=== PATIENT | female | born 1960 | race Caucasian/White ===

== ENCOUNTER 2025-01-17 08:12 | Day surgery (SDC) | payer OTHER, SELFPAY ==
--- OUTSIDE RECORDS SUMMARY | 2024-11-30 11:54 | XMS_ITS | Clinical Summary ---
Author Organization [facility] Facility Address [address] [place] [address] Care Team Providers Care Associate Creative Director Name Role Phone Mellissa Nelson MD Primary Care Provider + Allergies Active Allergy Reactions Criticality Noted Date Comments Bisphosphonates Other (see comments) 11/21/2022 Medications Forteo 600 MCG/2.4ML solution pen-injector 11/13/2022 Active gabapentin (NEURONTIN) 300 MG capsule Take 1 capsule by mouth 04/24/2022 Active dorzolamide-elissa olol (COSOPT) 22.3-6.8 MG/ML ophthalmic solution INSTILL 1 DROP IN BOTH EYES TWICE DAILY 10/09/2022 Active aspirin (ST MATTHEW) 81 MG EC tablet Take 81 mg by mouth 1 (one) time each day Active spironolactone (ALDACTONE) 25 MG tablet Take 1 tablet (25 mg total) by mouth 1 (one) time each day 30 tablet 5 12/04/2022 Active metoprolol tartrate 25 MG tablet Take 1 tablet (25 mg total) by mouth in the morning and 1 tablet (25 mg total) in the evening. 60 tablet 12/04/2022 Active metFORMIN (GLUCOPHAGE) 1000 MG tablet Take 1 tablet (1,000 mg total) by mouth in the morning and 1 tablet (1,000 mg total) in the evening. Take with meals. 60 tablet 12/04/2022 Active lisinopril 2.5 MG tablet Take 1 tablet (2.5 mg total) by mouth 1 (one) time each day 30 tablet 5 12/04/2022 Active simvastatin (ZOCOR) 10 MG tablet TAKE 1 TABLET BY MOUTH EVERY DAY 30 tablet 5 08/22/2023 Active torsemide (DEMADEX) 20 MG tablet TAKE 1 TABLET(20 MG) BY MOUTH EVERY DAY 90 tablet 3 07/30/2024 Active Active Problems Problem Noted Date Diagnosed Date Chronic osteomyelitis of jaw 11/21/2022 Diabetes mellitus 11/21/2022 Diastolic heart failure 11/21/2022 Dissecting aneurysm of artery 11/21/2022 Overview (11/21/2022): Followed yearly at [facility] Glaucoma 11/21/2022 Hyperlipidemia 11/21/2022 Spondylolisthesis 11/21/2022 Overview (11/21/2022): per chart review- BMD 02/03/2006 AP lumbar spine- - 3. 8, Total L Proximal Femur - 2.7, Femoral neck -4.0/ Osteoporosis results. will scan this result to chart. Ct notes fusion from resolved discitis Severe obesity 11/21/2022 Obstructive sleep apnea syndrome 12/25/2009 Gout 08/05/2007 Hypertension 08/05/2007 Immunizations Name Administration Dates Next Due H1N1 Inj 08/14/2009 Hep A / Hep B 05/24/2020,04/20/2020 Influenza LAIV (Nasal) 08/14/2009 Influenza, Unspecified 07/18/2020,2018,08/18/2018,09/08/2017,07/07,07/24/2015,07/29/2012,08/15/2011,07/29/20 07 MMR 06/18/2022 Pfizer SARS-COV-2 04/11/2022,03/08/2021,02/16/20 21 Pneumococcal Conjugate 06/18/2022 Pneumococcal Polysaccharide 03/15/2013, 7 Td, Unspecified 05/08/2007 Tdap 05/30/2014 Family History Medical History Relation Comments Heart disease Father Hypertension Father Kidney disease Father Stroke Father Diabetes Sister Relation Status Comments Father Sister Social History Tobacco Use Types Packs/Day Years Used Date Smoking Tobacco: Never Smokeless Tobacco: Never Tobacco Cessation:Counseling Given: Not Answered Alcohol Use Standard Drinks/Week Comments Never 0 (1 standard drink = 0.6 oz pur e alcohol) Comments Unknown Sex and Gender Information Value Date Recorded Sex Assigned at Not on file Legal Sex Female 10:12 AM EST Gender Identity Not on file Sexual Orientation Not on file Last Filed Vital Signs Vital Sign Reading Time Taken Comments Blood Pressure 88/62 12/04/2022 1:14 PM EST Pulse 102 12/04/2022 1:14 PM EST Temperature - - Respiratory Rate - - Oxygen Saturation - - Inhaled Oxygen Concentration - - Weight 74.4 kg (164 lb) 12/04/2022 1:14 PM EST Height - - Body Mass Index - - Plan of Treatment Health Maintenance Due Date Last Done Comments Breast Cancer Screening 1962 Colorectal Cancer Screening: Annual FOBT 2011 Colorectal Cancer Screening: Colonoscopy 2011 Colorectal Cancer Screening: Sigmoidoscopy 2011 Diabetes: Hemoglobin A1C 09/20/2022 Diabetes: Ophthalmology Exam 09/20/2022 Diabetes: Pedal Pulse Checked 09/20/2022 Diabetes: Sensory Foot Exam 09/20/2022 Diabetes: Visual Foot Exam 09/20/2022 Pneumococcal Vaccine: Pediat rics (0 to 5 Years) and At-Risk Patients (6 to 64 Years) (3 of 3 - PCV) 06/18/2023 06/18/2022, 03/15/2013, 05/08/2007 Influenza Vaccine (#1) 2024 , 07/13/2019, 08/18/2018, Additional history exists Hepatitis B Vaccine Completed 08/06/2022, 05/24/2020, 04/20/2020 Insurance [facility] [place] [address] [address] [place] [address] MEDICAID Care Teams Associate Creative Director Relationship Specialty Start Date End Date Mellissa Nelson MD [address] PCP - General Internal Medicine 12/04/22
--- OUTSIDE RECORDS SUMMARY | 2024-11-30 11:55 | XMS_ITS | Clinical Summary ---
Author Organization [facility] ity Address [address] [place] [address] Care Team Providers Care Adult Education Manager Name Role Phone Unavailable Primary Care Provider Unavailabl e Social History Tobacco Use Types Packs/Day Years Used Date Smoking Tobacco: Never Assessed Comments Unknown Sex and Gender Information Value Date Recorded Sex Assigned at Not on file Legal Sex Female 6:52 PM EST Gender Identity Not on file Sexual Orientation Not on file Plan of Treatment Health Maintenance Due Date Last Done Comments Breast Cancer Screening 1962 DTaP,Tdap,and Td Vaccines (1 - Tdap) 1981 Cervical Cancer Screening: P ap Smear 1983 Pneumococcal Vaccine: 50+ Ye ars (1 of 1 - PCV) 02/12/2012 Zoster Vaccines (1 of 2) 02/12/2012 COVID-19 Vaccine ( - 2023-2 5 season) 2024 Influenza Vaccine (#1) 2024 RSV Immunization Patients 60 + Years Old (1 - 1-dose 75+ series) 2037 HIB Vaccines Aged Out No longer eligi ble based on patient's age to complete this topic HPV Vaccines Aged Out No longer eligi ble based on patient's age to complete this topic Hepatitis A Vaccines Aged Out No long er eligible based on patient's age to complete this topic Hepatitis B Vaccines Aged Out No long er eligible based on patient's age to complete this topic IPV Vaccines Aged Out No longer eligi ble based on patient's age to complete this topic MMR Vaccines Aged Out No longer eligi ble based on patient's age to complete this topic Meningococcal ACWY Vaccine Aged Out N o longer eligible based on patient's age to complete this topic Meningococcal B Vacine Aged Out No lo nger eligible based on patient's age to complete this topic Pneumococcal Vaccine: Pediat rics (0 to 5 Years) and At-Risk Patients (6 to 64 Years) Aged Out No longer eligible b ased on patient's age to complete this topic RSV Immunization Patients Un katey 20 months Aged Out No longer eligible b ased on patient's age to complete this topic Varicella Vaccines Aged Out No longer eligible based on patient's age to complete this topic
--- OUTSIDE RECORDS SUMMARY | 2024-11-30 11:55 | XMS_ITS | Continuity of Care Document ---
Author Organization [facility] Address [address] [address] Phone Care Team Providers Care Data Communications Technician Name Role Phone Kee Macario DO Unavailable Unavailable Advance Directives Directive Yes / No Effective Date File Name No Information Encounters Encounter Description Practice Location Reason(s) For Visit Diagnoses Date Provider [facility], [address], [id number], [place] tel:[phone] [address] [place] [address] No Information 2022 Renaldo Sweet. [address] [place] [address], [id number], [place]. tel:[phone] Family History Family Member Type Diagnosis Age At Onset No Information Payers Payer name Insurance type Covered libertarian ID Authoriza tion(s) No Information Social History Type Description Quantity Date Captured Comments Sex Female Smoking Status No Information Chief Complaint And Reason For Visit No Information History Of Present Illness Encounter Date Complaint History Of Prese nt Illness No Information Instructions Date Instruction Additional Infor mation No Information Assessments Type Assessment Date No Information
[2025-01-13 14:24] VITALS: BMI 34.0
--- NOTE | 2025-01-17 08:37 | HO.ANESPROP2 ---
HPI - Anesthesia Eval Consult details Narrative: cataract left PMFSH Past Medical History Medical History (HFpEF) heart failure with preserved ejection fraction Cataracts, bilateral Type 2 diabetes mellitus Pulmonary hypertension Osteoporosis Osteomyelitis AUTUMN (obstructive sleep apnea) Leg edema HLD (hyperlipidemia) HTN (hypertension) Gout Glaucoma Dissection of other artery Diastolic heart failure Hx of arterial dissection Anterolisthesis Family History Family history of problems with anesthesia: No Surgical History Surgical History (Updated 01/12/25 @ 11:05 by Anny Jones RN) History of excision of lesion History of hip surgery History of bilateral knee replacement History of open reduction and internal fixation (ORIF) procedure (06/2014) Hx of biopsy History of Problems with Anesthesia: No Social History Social History Are you a primary special needs caregiver to a significant other at home: No Do you presently have visiting nurse or other home services: Yes (daughter Opal PÉREZ) Comment: can stand with assist to pivot Patient Tobacco Use Status: Never used Tobacco Use of substances other than those prescribed or required for medical reasons: No Advance Directives: No Advance Directives Information Provided: Yes Advance Directives on File: No Poor oral hygiene: No Meds Allergies Allergy/AdvReac Type Severity Reaction Status Date / Time Bisphosphonates Allergy osteonecrosis Verified 01/12/25 10:55 of jaw Home Medications ?Medication ?Instructions ?Recorded ?Confirmed ?Last Taken ?Type allopurinol 100 mg tablet 200 mg PO DAILY 01/12/25 01/13/25 Unknown History budesonide-formoterol HFA 160 1 puff inhalation QID PRN 01/12/25 01/13/25 Unknown History mcg-4.5 mcg/actuation aerosol Shortness Of Breath Or Wheezing inhaler (Symbicort) calcium 600 mg (as tab PO 01/12/25 Unknown History carbonate)-vitamin D3 20 mcg (800 unit) tablet cyanocobalamin (vitamin B-12) 100 100 mcg PO DAILY 01/12/25 01/13/25 Unknown History mcg tablet (Vitamin B-12) dorzolamide 22.3 mg-timolol 6.8 1 drp ophthalmic (eye) BID 01/12/25 01/13/25 Unknown History mg/mL eye drops folic acid 1 mg tablet 1 mg PO DAILY 01/12/25 01/13/25 Unknown History gabapentin 300 mg capsule 300 mg PO BID 01/12/25 01/13/25 Unknown History latanoprost 0.005 % eye drops drp ophthalmic (eye) 01/12/25 Unknown History lisinopril 2.5 mg tablet 2.5 mg PO DAILY 01/12/25 01/13/25 Unknown History loratadine 10 mg tablet 10 mg PO DAILY 01/12/25 01/13/25 Unknown History metformin 500 mg tablet 500 mg PO BID 01/12/25 01/13/25 Unknown History simvastatin 10 mg tablet 10 mg PO BEDTIME 01/12/25 01/13/25 Unknown History spironolactone 25 mg tablet 25 mg PO DAILY 01/12/25 01/13/25 Unknown History torsemide 20 mg tablet 20 mg PO DAILY 01/12/25 01/13/25 Unknown History Exam Height,Weight and Vital Signs: Height 4 ft 9 in Weight 71.214 kg Airway Mallampati Class: III TM Dist: <=3cm Neck ROM: Limited Heart: rrr Lungs: ta Assessment and Plan Assessment Anesthesia Assessment: Anesthesia Plan Discussed and Chart Reviewed Final Anesthetic Review Family History of Problems with Anesthesia: No History of Problems with Anesthesia: No NPO: Yes ASA Class: III Final Preanesthetic Review: No Changes in Pt Med Stat, Meds/Allgs Chart Reviewed, Consent Obtained/Reviewed and Anes Risks/Benef Reviewed Patient Risk: Intermediate Procedure Risk: Low Anesthetic Plan Anesthetic Plan: MAC: Disposition: Standard PACU
[2025-01-17 08:38] VITALS: BP 101/62; PULSE 61; RESP 16; TEMP 36.1; O2SAT 96
[2025-01-17] MEDS: Tetracaine HCl/PF 0.5% Oph Sol 4 ML DROPS 1 DROP EYE-LEFT (08:44)
[2025-01-17] MEDS: Tropicamide 1 % Ophth Sol 3 ML BTL 1 DROP EYE-LEFT ×3 (08:45→08:59)
[2025-01-17] MEDS: Cyclopentolate 1 % Ophth Sol 2 ML DRPBTL 1 DROP EYE-LEFT ×3 (08:45→08:57)
[2025-01-17] MEDS: Ketorolac Tromethamine 0.5% Op 5 ML DROPS 1 DROP EYE-LEFT ×3 (08:46→09:00)
[2025-01-17] MEDS: Phenylephrine HCL 2.5% Oph SoL 2 ML BOTTLE 1 DROP EYE-LEFT ×3 (08:48→09:01)
[2025-01-17 09:00] LABS: Glucose, Whole Blood 71 mg/dL (60-115)
[2025-01-17] MEDS: Lactated Ringers 500 ML 50 ML IV (09:00)
--- NOTE | 2025-01-17 09:18 | MHC.SHP ---
Pre-Procedural Eval Section A - 24 Hr Update-Section A only Date of Service: 01/17/25 The patient is an INPATIENT: No Changes since office visit: No Cold of Flu in the past 2 weeks, No New Medical Problems, No Changes in Medication and No Patient answered all questions The patient has been examined within 24 hours of the surgical procedure. The History & Physical has been completed within 30 days and I have reviewed it.: Yes Section B - Complete if H&P > 30 days Chief Complaint: Age-related nuclear cataract, left eye Allergies: Allergies Allergy/AdvReac Type Severity Reaction Status Date / Time Bisphosphonates Allergy osteonecrosis Verified 01/12/25 10:55 of jaw Plan Diagnosis/Plan: Unchanged I have reviewed the history and physical and performed a pertinent physical examination on my patient. No changes have occurred unless specified. Time Spent With Patient Time: Total time managing care of this patient today ____ minutes.
--- NOTE | 2025-01-17 09:18 | HO.PNOPHT ---
Ophthalmology Procedure Procedure Date of Service: 01/17/25 Ophthalmology Viscoelastic: Dolly Adamson Dual Pack Pro Ophthalmology Lenses: AC21D3/AC21B (23) Procedure Notes: PREOPERATIVE DIAGNOSIS: Decreased visual acuity left eye secondary to cataract POSTOPERATIVE DIAGNOSIS: Same PROCEDURE: Left cataract extraction with intraocular lens insertion SURGEON: Lv Kaiser M.D. ANESTHESIA: Topical/MAC ESTIMATED BLOOD LOSS: None COMPLICATIONS: None After obtaining informed consent, the patient was brought to the operation room suite and placed in the supine position. After adequate sedation per anesthesia, topical drops of Tetracaine were given to the left eye. The eye was then prepped and draped in the usual sterile fashion. The operating room microscope was then positioned over the operative eye and a lid speculum placed. A paracentesis was created. Viscoelastic was then instilled into the anterior chamber. A three plane incision was then created temporally, utilizing a 2.85 mm keratome. Capsulotomy forceps were then utilized to create a circular tear capsulotomy. Hydrodissection and hydrodelineation were carried out until adequate mobilization of the nucleus occurred. Phacoemulsification was then utilized to remove the dense central nucleus followed by removal of the cortical material utilizing the automated aspiration irrigation unit. Viscoat elastic was instilled into the posterior capsular bag followed by placement of a posterior chamber intraocular lens without difficulty. The residual Viscoat elastic was then removed utilizing the automated IA machine. The wound was check and found to be watertight. The patient tolerated the procedure well and the lid speculum was removed. Intracameral injection of Vigamox 0.1 mL followed by a subtenon injection of Kenalog-40 0.2 mL were administered. The patient will be seen in the a.m.
[2025-01-17 09:46] VITALS: BP 117/98; PULSE 76; RESP 16; TEMP 36.1; O2SAT 100
[2025-01-17 10:00] VITALS: BP 100/67; PULSE 77; RESP 16; TEMP 36.1; O2SAT 100
[2025-01-17 10:15] VITALS: BP 115/77; PULSE 79; RESP 16; TEMP 37.2; O2SAT 100
== END 2025-01-17 10:19 | disposition home or self-care (01) ==
PROVIDERS: PCP Internal Medicine; Visit Provider Ophthalmology
PROC: (CPT 66985; principal; 2025-01-17 10:00)
DX: H25.12 Age-related nuclear cataract, left eye (principal); H52.4 Presbyopia; H18.413 Arcus senilis, bilateral; H11.153 Pinguecula, bilateral; E11.9 Type 2 diabetes mellitus without complications; I10 Essential (primary) hypertension; E78.00 Pure hypercholesterolemia, unspecified; J44.9 Chronic obstructive pulmonary disease, unspecified; G47.33 Obstructive sleep apnea (adult) (pediatric); M81.0 Age-related osteoporosis without current pathological fracture; Z79.84 Long term (current) use of oral hypoglycemic drugs; Z79.899 Other long term (current) drug therapy
CPT/HCPCS: 66984; 82947; J2250; J3301; V2630

== ENCOUNTER 2025-01-31 09:01 | Day surgery (SDC) | payer OTHER, SELFPAY ==
--- OUTSIDE RECORDS SUMMARY | 2024-12-02 13:34 | XMS_ITS | Continuity of Care Document ---
Author Organization [facility] Address [address] [address] Phone Care Team Providers Care Dianeticist Name Role Phone Kee Macario DO Unavailable Unavailable Advance Directives Directive Yes / No Effective Date File Name No Information Encounters Encounter Description Practice Location Reason(s) For Visit Diagnoses Date Provider [facility], [address], [id number], [place] tel:[phone] [address] [place] [address] No Information 2022 Renaldo Sweet. [address] [place] [address], [id number], [place]. tel:[phone] Family History Family Member Type Diagnosis Age At Onset No Information Payers Payer name Insurance type Covered alliance party ID Authoriza tion(s) No Information Social History Type Description Quantity Date Captured Comments Sex Female Smoking Status No Information Chief Complaint And Reason For Visit No Information History Of Present Illness Encounter Date Complaint History Of Prese nt Illness No Information Instructions Date Instruction Additional Infor mation No Information Assessments Type Assessment Date No Information
--- OUTSIDE RECORDS SUMMARY | 2024-12-02 13:34 | XMS_ITS | Clinical Summary ---
Author Organization [facility] Facility Address [address] [place] [address] Care Team Providers Care Shot Tube Machine Tender Name Role Phone Mellissa Nelson MD Primary [...] artery 11/21/2022 Overview (11/21/2022): Followed yearly at [facility] Glaucoma 11/21/2022 Hyperlipidemia 11/21/2022 Spondylolisthesis 11/21/2022 [...] 08/06/2022, 05/24/2020, 04/20/2020 Insurance [facility] [place] [address] [place] [address] MEDICAID Care Teams Shot Tube Machine Tender Relationship Specialty Start Date End Date Mellissa Nelson MD [address] PCP - General Internal Medicine 12/04/22
--- OUTSIDE RECORDS SUMMARY | 2024-12-02 13:34 | XMS_ITS | Clinical Summary ---
Author Organization [facility] ity Address [address] [place] [address] Care Team Providers Care Hitting Coach Name Role Phone Unavailable Primary Care Provider [...]
[2025-01-13 14:40] VITALS: BMI 34.0
--- NOTE | 2025-01-27 14:36 | P.CONAN_ITS ---
Documented by User: Jacqueline Wang NP 01/27/25 14:37 HPI - Anesthesia Eval Consult details Narrative: 64yo F for Right Cataract Extraction IOL Insertion Left eye 01/17/25: Midaz 1 PMFSH Past Medical History Medical History (HFpEF) heart failure with preserved ejection fraction Cataracts, bilateral Type 2 diabetes mellitus Pulmonary hypertension Osteoporosis Osteomyelitis AUTUMN (obstructive sleep apnea) Leg edema HLD (hyperlipidemia) HTN (hypertension) Gout Glaucoma Dissection of other artery Diastolic heart failure Hx of arterial dissection Anterolisthesis Family History Family history of problems with anesthesia: No Surgical History Surgical History (Updated 01/18/25 @ 11:49 by Anny Jones RN) History of left cataract extraction (01/17/25) History of excision of lesion History of hip surgery History of bilateral knee replacement History of open reduction and internal fixation (ORIF) procedure (06/2014) Hx of biopsy History of Problems with Anesthesia: No Social History Social History Are you a primary dog daycare provider to a significant other at home: No Do you presently have visiting nurse or other home services: Yes (daughter Opal EDUCATION RESEARCH ANALYST) Comment: can stand with assist to pivot Patient Tobacco Use Status: Never used Tobacco Use of substances other than those prescribed or required for medical reasons: No Are you DNR?: No Advance Directives: No Advance Directives Information Provided: Yes Advance Directives on File: No Poor oral hygiene: No Meds Allergies Allergy/AdvReac Type Severity Reaction Status Date / Time Bisphosphonates Allergy osteonecrosis Verified 01/12/25 10:55 of jaw Home Medications ?Medication ?Instructions ?Recorded ?Confirmed ?Last Taken ?Type allopurinol 100 mg tablet 200 mg PO DAILY 01/12/25 01/13/25 01/31/25 History budesonide-formoterol HFA 160 1 puff inhalation QID PRN 01/12/25 01/13/25 01/31/25 History mcg-4.5 mcg/actuation aerosol Shortness Of Breath Or Wheezing inhaler (Symbicort) calcium 600 mg (as tab PO 01/12/25 01/17/25 History carbonate)-vitamin D3 20 mcg (800 unit) tablet cyanocobalamin (vitamin B-12) 100 100 mcg PO DAILY 01/12/25 01/13/25 01/17/25 History mcg tablet (Vitamin B-12) dorzolamide 22.3 mg-timolol 6.8 1 drp ophthalmic (eye) BID 01/12/25 01/13/25 Unknown History mg/mL eye drops folic acid 1 mg tablet 1 mg PO DAILY 01/12/25 01/13/25 01/17/25 History gabapentin 300 mg capsule 300 mg PO BID 01/12/25 01/13/25 01/31/25 History latanoprost 0.005 % eye drops drp ophthalmic (eye) 01/12/25 Unknown History lisinopril 2.5 mg tablet 2.5 mg PO DAILY 01/12/25 01/13/25 01/17/25 History loratadine 10 mg tablet 10 mg PO DAILY 01/12/25 01/13/25 01/31/25 History metformin 500 mg tablet 500 mg PO BID 01/12/25 01/13/25 Unknown History simvastatin 10 mg tablet 10 mg PO BEDTIME 01/12/25 01/13/25 01/17/25 History spironolactone 25 mg tablet 25 mg PO DAILY 01/12/25 01/13/25 01/17/25 History torsemide 20 mg tablet 20 mg PO DAILY 01/12/25 01/13/25 Unknown History Exam Height,Weight and Vital Signs: Height 4 ft 9 in Weight 71.214 kg Assessment and Plan Assessment Anesthesia Assessment: Chart Reviewed Final Anesthetic Review Family History of Problems with Anesthesia: No History of Problems with Anesthesia: No Documented by User: Tawanna Fleming MD 01/31/25 10:09 [facility] Past Medical History Medical History (HFpEF) heart failure with preserved ejection fraction Cataracts, bilateral Type 2 diabetes mellitus Pulmonary hypertension Osteoporosis Osteomyelitis AUTUMN (obstructive sleep apnea) Leg edema HLD (hyperlipidemia) HTN (hypertension) Gout Glaucoma Dissection of other artery Diastolic heart failure Hx of arterial dissection Anterolisthesis Surgical History Surgical History (Updated 01/18/25 @ 11:49 by Anny Jones RN) History of left cataract extraction (01/17/25) History of excision of lesion History of hip surgery History of bilateral knee replacement History of open reduction and internal fixation (ORIF) procedure (06/2014) Hx of biopsy Social History Social History Are you a primary dog daycare provider to a significant other at home: No Do you presently have visiting nurse or other home services: Yes (daughter Opal EDUCATION RESEARCH ANALYST) Comment: can stand with assist to pivot Patient Tobacco Use Status: Never used Tobacco Use of substances other than those prescribed or required for medical reasons: No Are you DNR?: No Advance Directives: No Advance Directives Information Provided: Yes Advance Directives on File: No Poor oral hygiene: No Meds Allergies Allergy/AdvReac Type Severity Reaction Status Date / Time Bisphosphonates Allergy osteonecrosis Verified 01/12/25 10:55 of jaw Home Medications ?Medication ?Instructions ?Recorded ?Confirmed ?Last Taken ?Type allopurinol 100 mg tablet 200 mg PO DAILY 01/12/25 01/13/25 01/31/25 History budesonide-formoterol HFA 160 1 puff inhalation QID PRN 01/12/25 01/13/25 01/31/25 History mcg-4.5 mcg/actuation aerosol Shortness Of Breath Or Wheezing inhaler (Symbicort) calcium 600 mg (as tab PO 01/12/25 01/17/25 History carbonate)-vitamin D3 20 mcg (800 unit) tablet cyanocobalamin (vitamin B-12) 100 100 mcg PO DAILY 01/12/25 01/13/25 01/17/25 History mcg tablet (Vitamin B-12) dorzolamide 22.3 mg-timolol 6.8 1 drp ophthalmic (eye) BID 01/12/25 01/13/25 Unknown History mg/mL eye drops folic acid 1 mg tablet 1 mg PO DAILY 01/12/25 01/13/25 01/17/25 History gabapentin 300 mg capsule 300 mg PO BID 01/12/25 01/13/25 01/31/25 History latanoprost 0.005 % eye drops drp ophthalmic (eye) 01/12/25 Unknown History lisinopril 2.5 mg tablet 2.5 mg PO DAILY 04/06/3001/13/25 01/17/25 History loratadine 10 mg tablet 10 mg PO DAILY 01/12/25 01/13/25 01/31/25 History metformin 500 mg tablet 500 mg PO BID 01/12/25 01/13/25 Unknown History simvastatin 10 mg tablet 10 mg PO BEDTIME 01/12/25 01/13/25 01/17/25 History spironolactone 25 mg tablet 25 mg PO DAILY 01/12/25 01/13/25 01/17/25 History torsemide 20 mg tablet 20 mg PO DAILY 01/12/25 01/13/25 Unknown History Exam Airway Mallampati Class: II TM Dist: >3cm Neck ROM: Full Heart: rrr Lungs: cta Assessment and Plan Assessment Anesthesia Assessment: Anesthesia Plan Discussed Final Anesthetic Review NPO: Yes ASA Class: III Final Preanesthetic Review: No Changes in Pt Med Stat, Meds/Allgs Chart Reviewed and Consent Obtained/Reviewed Patient Risk: Intermediate Procedure Risk: Low Anesthetic Plan Anesthetic Plan: MAC: Disposition: Standard PACU
[2025-01-31 09:46] VITALS: BP 102/68; PULSE 98; RESP 16; TEMP 36.1; O2SAT 95
[2025-01-31] MEDS: Tetracaine HCl/PF 0.5% Oph Sol 4 ML DROPS 1 DROP EYE-RIGHT (10:05)
[2025-01-31 10:06] LABS: Glucose, Whole Blood 88 mg/dL (60-115)
[2025-01-31] MEDS: Cyclopentolate 1 % Ophth Sol 2 ML DRPBTL 1 DROP EYE-RIGHT ×3 (10:07→10:13)
[2025-01-31] MEDS: Tropicamide 1 % Ophth Sol 3 ML BTL 1 DROP EYE-RIGHT ×3 (10:08→10:13)
[2025-01-31] MEDS: Ketorolac Tromethamine 0.5% Op 5 ML DROPS 1 DROP EYE-RIGHT ×3 (10:08→10:14)
[2025-01-31] MEDS: Phenylephrine HCL 2.5% Oph SoL 2 ML BOTTLE 1 DROP EYE-RIGHT ×3 (10:09→10:14)
[2025-01-31] MEDS: Lactated Ringers 500 ML 50 ML IV (10:15)
--- NOTE | 2025-01-31 10:51 | MHC.SHP ---
Pre-Procedural Eval Section A - 24 Hr Update-Section A only Date of Service: 01/31/25 The patient is an INPATIENT: No Changes since office visit: No Cold of Flu in the past 2 weeks, No New Medical Problems, No Changes in Medication and No Patient answered all questions The patient has been examined within 24 hours of the surgical procedure. The History & Physical has been completed within 30 days and I have reviewed it.: Yes Section B - Complete if H&P > 30 days Chief Complaint: Age-related nuclear cataract, right eye Allergies: Allergies Allergy/AdvReac Type Severity Reaction Status Date / Time Bisphosphonates Allergy osteonecrosis Verified 01/12/25 10:55 of jaw Plan Diagnosis/Plan: Unchanged I have reviewed the history and physical and performed a pertinent physical examination on my patient. No changes have occurred unless specified. Time Spent With Patient Time: Total time managing care of this patient today ____ minutes.
--- NOTE | 2025-01-31 10:52 | P.PCNO_ITS ---
Ophthalmology Procedure Procedure Date of Service: 01/31/25 Ophthalmology Viscoelastic: Healon Duet Dual Pack Pro Ophthalmology Lenses: IOL Acrysof MP - [id number] (22.5) Procedure Notes: PREOPERATIVE DIAGNOSIS: Decreased visual acuity right eye secondary to cataract POSTOPERATIVE DIAGNOSIS: Same PROCEDURE: Right cataract extraction with intraocular lens insertion SURGEON: Lv Kaiser M.D. ANESTHESIA: Topical/MAC ESTIMATED BLOOD LOSS: None COMPLICATIONS: None After obtaining informed consent, the patient was brought to the operating room suite and placed in the supine position. After adequate sedation per anesthesia, topical drops of Tetracaine were given to the right eye. The eye was then prepped and draped in the usual sterile fashion. The operating room microscope was then positioned over the operative eye and a lid speculum placed. A paracentesis was created. Viscoelastic was then instilled into the anterior chamber. A three plane incision was then created temporally, utilizing a 2.85 mm keratome. Capsulotomy forceps were then utilized to create a circular tear capsulotomy. Hydrodissection and hydrodelineation were carried out until adequate mobilization of the nucleus occurred. Phacoemulsification was then utilized to remove the dense central nu cleus followed by removal of the cortical material utilizing the automated aspiration irrigation unit. Viscoelastic was instilled into the posterior capsular bag followed by placement of a posterior chamber intraocular lens without difficulty. The residual Viscoelastic was then removed utilizing the automated IA machine. The wound was checked and found to be watertight. The patient tolerated the procedure well and the lid speculum was removed. Intracameral injection of Vigamox 0.1 mL followed by a subtenon injection of Kenalog-40 0.2 mL were administered. The patient will be seen in the a.m.
[2025-01-31 11:13] VITALS: BP 115/72; PULSE 88; RESP 18; TEMP 36.4; O2SAT 97
== END 2025-01-31 11:27 | disposition home or self-care (01) ==
PROVIDERS: PCP Internal Medicine; Visit Provider Ophthalmology
PROC: (CPT 66985; principal; 2025-01-31 11:00)
DX: H25.11 Age-related nuclear cataract, right eye (principal); H52.4 Presbyopia; H18.413 Arcus senilis, bilateral; H11.153 Pinguecula, bilateral; H40.9 Unspecified glaucoma; G47.33 Obstructive sleep apnea (adult) (pediatric); E78.00 Pure hypercholesterolemia, unspecified; E11.9 Type 2 diabetes mellitus without complications; J44.9 Chronic obstructive pulmonary disease, unspecified; M81.0 Age-related osteoporosis without current pathological fracture; M86.9 Osteomyelitis, unspecified; I11.0 Hypertensive heart disease with heart failure; I50.30 Unspecified diastolic (congestive) heart failure; I27.20 Pulmonary hypertension, unspecified; Z79.51 Long term (current) use of inhaled steroids; Z79.84 Long term (current) use of oral hypoglycemic drugs; Z79.899 Other long term (current) drug therapy; Z88.8 Allergy status to other drugs, medicaments and biological substances; Z98.890 Other specified postprocedural states
CPT/HCPCS: 66984; 82947; J2250; J3301; V2630